=== PATIENT | male | born 1960 | race Caucasian/White ===

== ENCOUNTER → 2019-09-16 | Outpatient (CLI) | payer OTHER ==
--- NOTE | 2019-09-16 11:04 | KCIC ---
EXAM: CT temporal bones without contrast. HISTORY: Chronic right otitis media. Right ear drainage and hearing loss. TECHNIQUE: CT of the temporal bones was performed without intravenous contrast. One or more of the following individualized dose reduction techniques were utilized for this examination: 1. Automated exposure control. 2. Adjustment of the mA and/or kV according to patient size. 3. Use of iterative reconstruction technique. COMPARISON: None. FINDINGS: The medial aspect of the right external auditory canal is opacified, likely from soft tissue thickening rather than fluid. This extends medially to the level of the tympanic membrane. There is also similar signal intensity throughout the presacral space and the superior aspect of the middle ear cavity. This surrounds the ossicles which may be partially eroded as they appear smaller than on the left. The medial aspect of the middle ear cavity is aerated. The right mastoid air cells are completely opacified. The right semicircular canals and cochlea are unremarkable. The internal auditory canal appears normal by CT. On the left, the external auditory canal is patent. The middle ear cavity is normally aerated. The ossicles are intact. The mastoid air cells are normally aerated. The internal auditory canal, cochlea and semicircular canals are unremarkable. IMPRESSION: 1. The medial aspect of the right external auditory canal and the superolateral aspect of the middle ear cavity including Prussak's space are opacified. This examination cannot differentiate which portion of this is from fluid and soft tissue. The portion within the superior aspect of the middle ear cavity is concerning for a cholesteatoma. There is partial erosion of the superior ossicles. 2. The right mastoid air cells are completely opacified. Electronically signed by: Charles Headley MD (09/16/2019 11:01 AM) [facility]
== END | disposition home or self-care (01) ==
LOC: KCIC CT 08:57
PROVIDERS: ATTEND Otolaryngology Otology & Neurotology
DX: H66.91 Otitis media, unspecified, right ear (principal)
CPT/HCPCS: 70480